=== PATIENT | male | born 1990 | race Caucasian/White ===

== ENCOUNTER 2017-03-24 19:32 | Emergency (ER) | payer OTHER ==
[2017-03-24 19:37] VITALS: BP 137/77; PULSE 93; RESP 18; TEMP 99.5; O2SAT 95
--- NOTE | 2017-03-24 22:20 | EDPHY ---
H & P Stated Complaint: COUGH FOR FEW DAYS NOW COUGHED UP SOME BLOOD Time Seen by Provider: 03/24/17 21:50 HPI/ROS: Chief Complaint: Cough and blood HPI: 26-year-old type 1 diabetic presenting with 2 days of upper respiratory symptoms and cough productive of a mild yellowish sputum. Tonight he had a coughing fit and coughed up small amount of blood. Has not had any real fevers or chills. No chest pain or shortness of breath. No nausea or vomiting. He is relatively well controlled his diabetes on an insulin pump. Blood sugars have been running somewhat high for the last few days because he has been sick. Has been drinking plenty of fluids. No recent travel. Does not have any risk factors for TB. ROS: 10 point Review of Systems is negative except as noted in the HPI. PMH: Type 1 diabetes Medications: Humalog Allergies: Shellfish drive Social History: No smoking, occasional alcohol, no recreational drug use Family History: non-contributory Physical Exam: Gen: Awake, Alert, No Distress HEENT: Nose: no rhinorrhea Eyes: PERRLA, EOMI Mouth: Moist mucosa Neck: Supple, no JVD Chest: nontender, lungs clear to auscultation Heart: S1, S2 normal, no murmur Abd: Soft, non-tender, no guarding Back: no CVA tenderness, no midline tenderness Ext: no edema, non-tender Skin: no rash Neuro: CN II-XII intact, Sensation grossly intact, Strength 5/5 in bilateral upper and lower extremities - Personal History Current Tetanus/Diphtheria Vaccine: Yes Current Tetanus Diphtheria and Acellular Pertussis (TDAP): Yes - Medical/Surgical History Hx Asthma: No Hx Chronic Respiratory Disease: No Hx Diabetes: Yes Hx Cardiac Disease: No Hx Renal Disease: No Hx Cirrhosis: No Hx Alcoholism: No Hx HIV/AIDS: No Hx Splenectomy or Spleen Trauma: No Other PMH: D.M. - Social History Smoking Status: Current some day smoker Constitutional: Initial Vital Signs Temperature (C) 37.5 C 03/24/17 19:36 Heart Rate 93 03/24/17 19:36 Respiratory Rate 18 03/24/17 19:36 Blood Pressure 137/77 H 03/24/17 19:36 O2 Sat (%) 95 03/24/17 19:36 O2 Delivery Mode Room Air Allergies/Adverse Reactions: shellfish derived Allergy (Severe, Verified 03/24/17 19:37) Home Medications: Medication Instructions Recorded Insulin Lispro [Humalog] 100 unit SQ 03/24/17 Medical Decision Making - Diagnostics Imaging Results: Imaging Impressions Chest X-Ray 03/24/17 21:40 IMPRESSION: Normal chest x-ray. Imaging: I viewed and interpreted images myself ED Course/Re-evaluation: [age] with an episode of hemoptysis. Chest x-ray is negative. He is afebrile with normal vital signs here. He is certainly not ill appearing in any way. Does not have any risk factors for TB. Will discharge with follow-up with his primary care physician as an outpatient, instructions return for worsening cough, shortness of breath, fevers, chills, or any other concerns. Departure - Departure Disposition: Home, Routine, Self-Care Clinical Impression: Acute bronchitis, Hemoptysis Condition: Good Instructions: Acute Bronchitis (ED), Hemoptysis (ED) Additional Instructions: Follow up with primary care physician in 2-3 days for re-evaluation. Return emergency department for coughing up more blood, fevers, chills, chest pain, shortness of breath, or any other concerns. Referrals: NONE *PRIMARY CARE P,. [Primary Care Provider] - As per Instructions Ingris Carlos MD [Medical Doctor] - As per Instructions
== END 2017-03-24 22:34 | disposition home or self-care (01) ==
DX: J20.9 Acute bronchitis, unspecified (principal); E10.9 Type 1 diabetes mellitus without complications; F17.200 Nicotine dependence, unspecified, uncomplicated

== ENCOUNTER 2017-11-14 20:31 | Emergency (ER) | payer OTHER ==
--- NOTE | 2017-11-14 20:52 | CPEKG ---
Heart Rate: 78 RR Interval: 769 P-R Interval: 144 QRSD Interval: 96 QT Interval: 356 QTC Interval: 406 P [place]: 71 QRS [place]: 58 T Wave [place]: 63 EKG Severity - NORMAL ECG - EKG Impression: SINUS RHYTHM Electronically Signed By: Giuseppe Daugherty 14-Nov-2017 22:46:41
[2017-11-14] MEDS ORDERED: NS 1,000 ML IV ONE (21:23)
--- NOTE | 2017-11-14 21:23 | EDPHY ---
H & P Stated Complaint: LIGHTHEADEDNESS X 2 DAYS/CP X 1 DAY Time Seen by Provider: 11/14/17 21:22 HPI/ROS: HPI: This is a 27-year-old male presents with Chief Complaint: LIGHTHEADEDNESS X 2 DAYS/CP X 1 DAY Location: Left anterior chest Quality: Pressure Duration: 1 day Signs and Symptoms: No fever, no chills, no shortness of breath, no lower extremity edema, no cough, no wheezing, no dizziness Timing: Sudden Severity: Moderate Context: Patient presents with complaints of lightheadedness time 2 days that is worsened with position changes accompanied by left anterior nonradiating mild pressure-like pain on the left side of his chest that started today while he is working at a [employer] shop. Patient denies any fever, chills, cough. Patient recently traveled on a plane to [place]. Denies lower extremity edema. History of insulin-dependent diabetes mellitus; reports his blood sugars have been running between 150-190. Denies any indigestion/chest pain/shortness of breath. Chest pain is not worsened with inspiratory effort. Denies recreational drug use. Modifying Factors: None Comment: ROS: see HPI Constitutional: No fever, no chills, no weight loss Eyes: No blurred vision Respiratory: No shortness of breath, no cough Cardiovascular: No chest pain Gastrointestinal: No nausea, no vomiting, no diarrhea Genitourinary: No dysuria Extremities: No myalgias Neurologic: No weakness, no numbness Skin: No rashes Hematologic: No bruising, no bleeding MEDICAL/SURGICAL/SOCIAL HISTORY: Medical history: IDDM, THYROID Surgical history: Denies Social history: Employed. CONSTITUTIONAL: Extremely well-appearing adult white male, awake and alert, no obvious distress HEENT: Atraumatic and normocephalic, PERRL, EOMI. Tympanic membranes clear. Oropharynx clear, no exudate and moist pink mucosa. Airway patent. No lymphadenopathy. No meningismus. Cardiovascular: Normal S1/S2, regular rate, regular rhythm, without murmur rub or gallop. PULMONARY/CHEST: Symmetrical and nontender. Clear to auscultation bilaterally. Good air movement. No accessory muscle usage. ABDOMEN: Soft, nondistended, nontender, no rebound, no guarding, no peritoneal signs, no masses or organomegaly. No CVAT. EXTREMITIES: 2/2 pulses, strength 5/5, no deformities, no clubbing, no cyanosis or edema. NEUROLOGICAL: no focal neuro deficits. GCS 15. SKIN: Warm and dry, no erythema. no rash. Good capillary refill. Source: Patient Exam Limitations: No limitations - Personal History Current Tetanus Diphtheria and Acellular Pertussis (TDAP): Yes Tetanus Vaccine Date: LESS THAN 10 YEARS - Medical/Surgical History Hx Asthma: No Hx Chronic Respiratory Disease: No Hx Diabetes: Yes Hx Cardiac Disease: No Hx Renal Disease: No Hx Cirrhosis: No Hx Alcoholism: No Hx HIV/AIDS: No Hx Splenectomy or Spleen Trauma: No Other PMH: D.M., THYROID - Social History Smoking Status: Former smoker Constitutional: Initial Vital Signs Temperature (C) 36.4 C 11/14/17 20:39 Heart Rate 83 11/14/17 20:39 Respiratory Rate 16 11/14/17 20:39 Blood Pressure 122/86 H 11/14/17 20:39 O2 Sat (%) 94 11/14/17 20:39 O2 Delivery Mode Room Air Allergies/Adverse Reactions: shellfish derived Allergy (Severe, Verified 03/24/17 19:37) Home Medications: Medication Instructions Recorded Insulin Lispro [Humalog] 100 unit SQ 03/24/17 Synthroid 11/14/17 Medical Decision Making - Diagnostics EKG Interpretation: 12 lead EKG: Indication: Chest pain Rhythm: Normal sinus rhythm, rate of 98 beats per minute [place]: Normal Intervals: Normal QRS: Normal ST segments: Nonspecific changes T-waves: Nonspecific changes INTERPRETATION: No acute ischemic changes The 12 lead EKG was interpreted by myself and with attending. Imaging Results: Imaging Impressions Chest X-Ray 11/14/17 21:29 Impression: No acute pulmonary disease. ED Course/Re-evaluation: Labs, urinalysis, IV fluids, IV medications, EKG, chest x-ray ordered Given 1 L normal saline and IV Ativan BGL 169 Vital signs stable upon arrival. No hypoxia/wheezing 2205: labs reviewed- no leukocytosis. Normal D-dimer. no DKA. No pancreatitis. This x-ray my read shows no opacity, no effusion, no pneumothorax, no widened mediastinum. EKG no acute ischemic changes No signs of arrhythmia/pulmonary embolism/pneumonia Reassessed patient who reports that his dizziness has resolved and he no longer feels chest discomfort. Advised to follow up with PCP. This patient was seen under the supervision of my secondary supervising physician. I evaluated care for this patient independently. Patient's presentation, labs/imaging, treatment and plan of care were discussed with secondary supervising physician. Differential Diagnosis: Chest pain including but not limited to myocardial ischemia, pulmonary embolus, chest wall pain, pleural inflammation and pulmonary infectious causes. - Data Points Laboratory Results: Laboratory Results 11/14/17 21:30 11/14/17 21:30 11/14/17 11/14/17 11/14/17 22:48 21:30 21:30 WBC RBC Hgb Hct MCV MCH MCHC RDW Plt Count MPV Neut % (Auto) Lymph % (Auto) [place] % (Auto) Eos % (Auto) Baso % (Auto) Nucleat RBC Rel Count Absolute Neuts (auto) Absolute Lymphs (auto) Absolute Monos (auto) Absolute Eos (auto) Absolute Basos (auto) Absolute Nucleated RBC Immature Gran % Immature Gran # D-Dimer < 0.27 ug/mLFEU ug/mLFEU (0.00-0.50) Sodium 138 mEq/L mEq/L (134-144) Potassium 3.9 mEq/L mEq/L (3.5-5.2) Chloride 99 mEq/L mEq/L (97-110) Carbon Dioxide 26 mEq/l mEq/l (22-31) Anion Gap 13 mEq/L mEq/L (8-16) BUN 18 mg/dL mg/dL (7-23) Creatinine 0.9 mg/dL mg/dL (0.7-1.3) Estimated GFR > 60 Glucose 174 mg/dL H mg/dL (70-100) POC Glucose 149 mg/dL H mg/dL (70-100) Calcium 10.2 mg/dL mg/dL (8.5-10.4) Phosphorus 3.7 mg/dL mg/dL (2.5-4.5) Magnesium 1.9 mg/dL mg/dL (1.6-2.3) Total Bilirubin 1.6 mg/dL H mg/dL (0.1-1.4) Conjugated Bilirubin 0.2 mg/dL mg/dL (0.0-0.5) Unconjugated Bilirubin 1.4 mg/dL H mg/dL (0.0-1.1) AST 21 IU/L IU/L (17-59) ALT 30 IU/L IU/L (21-72) Alkaline Phosphatase 71 IU/L IU/L (38-126) Troponin I < 0.012 ng/mL ng/mL (0.000-0.034) NT-Pro-B Natriuret Pep 22 pg/mL pg/mL (0-125) Total Protein 7.4 g/dL g/dL (6.3-8.2) Albumin 4.5 g/dL g/dL (3.5-5.0) Lipase 139 IU/L IU/L (23-300) Beta-Hydroxybutyrate Pending 11/14/17 11/14/17 21:30 21:28 WBC 6.06 10^3/uL 10^3/uL (3.80-9.50) RBC 5.43 10^6/uL 10^6/uL (4.40-6.38) Hgb 17.5 g/dL g/dL (13.7-17.5) Hct 48.8 % % (40.0-51.0) MCV 89.9 fL fL (81.5-99.8) MCH 32.2 pg pg (27.9-34.1) MCHC 35.9 g/dL g/dL (32.4-36.7) RDW 11.2 % L % (11.5-15.2) Plt Count 235 10^3/uL 10^3/uL (150-400) MPV 10.6 fL fL (8.7-11.7) Neut % (Auto) 47.7 % % (39.3-74.2) Lymph % (Auto) 38.3 % % (15.0-45.0) [place] % (Auto) 9.7 % % (4.5-13.0) Eos % (Auto) 3.3 % % (0.6-7.6) Baso % (Auto) 0.8 % % (0.3-1.7) Nucleat RBC Rel Count 0.0 % % (0.0-0.2) Absolute Neuts (auto) 2.89 10^3/uL 10^3/uL (1.70-6.50) Absolute Lymphs (auto) 2.32 10^3/uL 10^3/uL (1.00-3.00) Absolute Monos (auto) 0.59 10^3/uL 10^3/uL (0.30-0.80) Absolute Eos (auto) 0.20 10^3/uL 10^3/uL (0.03-0.40) Absolute Basos (auto) 0.05 10^3/uL 10^3/uL (0.02-0.10) Absolute Nucleated RBC 0.00 10^3/uL 10^3/uL (0-0.01) Immature Gran % 0.2 % % (0.0-1.1) Immature Gran # 0.01 10^3/uL 10^3/uL (0.00-0.10) D-Dimer Sodium Potassium Chloride Carbon Dioxide Anion Gap BUN Creatinine Estimated GFR Glucose POC Glucose 169 mg/dL H mg/dL (70-100) Calcium Phosphorus Magnesium Total Bilirubin Conjugated Bilirubin Unconjugated Bilirubin AST ALT Alkaline Phosphatase Troponin I NT-Pro-B Natriuret Pep Total Protein Albumin Lipase Beta-Hydroxybutyrate Medications Given: Discontinued Medications Sodium Chloride (Ns) 1,000 mls @ 0 mls/hr IV ONCE ONE; Wide Open PRN Reason: Protocol Stop: 11/14/17 21:24 Last Admin: 11/14/17 21:45 Dose: 1,000 mls Lorazepam (Ativan Injection) 0.5 mg IVP EDNOW ONE Stop: 11/14/17 21:29 Last Admin: 11/14/17 22:24 Dose: 0.5 mg Point of Care Test Results: 11/14/17 11/14/17 21:28 22:48 POC Glucose 169 H 149 H Departure - Departure Disposition: Home, Routine, Self-Care Clinical Impression: Dizziness, Atypical chest pain Condition: Good Instructions: Chest Pain (ED), Dizziness (ED) Additional Instructions: Your chest pain today showed no acute cardiac or pulmonary causes. Your laboratory workup was normal. Please rest for the next few days and drink plenty of fluids to prevent hydration. Continue to follow a diabetic diet and monitor your blood sugars. Establish care with a local provider. If your chest pain continues to persist, follow up with your primary care provider or Cardiology for further evaluation. Referrals: [facility],. [Clinic] - As per Instructions Erma Patterson MD [[facility] [place]] - As per Instructions Stand Alone Forms: Work Excuse
[2017-11-14] MEDS ORDERED: LORazepam 2 MG/ML INJ IVP ONE (21:28)
[2017-11-14 21:44] LABS: % IMMATURE GRANULYOCYTES 0.2 % (0.0-1.1); ABSOLUTE IMMATURE GRANULOCYTES 0.01 10^3/uL (0.00-0.10); ADD DIFF? NO; ADD MORPH? NO; ADD SCAN? NO; ATYPICAL LYMPHOCYTE FLAG 10 (0-99); FRAGMENT RBC FLAG 0 (0-99); HEMATOCRIT 48.8 % (40.0-51.0); HEMOGLOBIN 17.5 g/dL (13.7-17.5); LEFT SHIFT FLG 0 (0-99); LIPEMIA HEMOLYSIS FLAG 90 (0-99); MEAN CELL HEMOGLOBIN 32.2 pg (27.9-34.1); MEAN CELL HEMOGLOBIN CONCENTR. 35.9 g/dL (32.4-36.7); MEAN CELL VOLUME 89.9 fL (81.5-99.8); MEAN PLATELET VOLUME 10.6 fL (8.7-11.7); PLATELET CLUMPS FLAG 0 (0-99); PLATELET COUNT 235 10^3/uL (150-400); RED BLOOD CELL COUNT 5.43 10^6/uL (4.40-6.38); RED CELL DISTRIBUTION WIDTH 11.2 % (11.5-15.2)
[2017-11-14 21:59] LABS: ALANINE AMINOTRANSFERASE 30 IU/L (21-72); ALBUMIN 4.5 g/dL (3.5-5.0); ALKALINE PHOSPHATASE 71 IU/L (38-126); ANION GAP 13 mEq/L (8-16); ASPARTATE AMINOTRANSFERASE 21 IU/L (17-59); BILIRUBIN,TOTAL 1.6 mg/dL (0.1-1.4); BILIRUBIN-CONJUGATED 0.2 mg/dL (0.0-0.5); BILIRUBIN-UNCONJUGATED 1.4 mg/dL (0.0-1.1); CALCIUM 10.2 mg/dL (8.5-10.4); CARBON DIOXIDE 26 mEq/l (22-31); CHLORIDE 99 mEq/L (97-110); CREATININE 0.9 mg/dL (0.7-1.3); GLOMERULAR FILTRATION RATE > 60; GLUCOSE 174 mg/dL (70-100); MAGNESIUM 1.9 mg/dL (1.6-2.3); POTASSIUM 3.9 mEq/L (3.5-5.2); SODIUM 138 mEq/L (134-144); TOTAL PROTEIN 7.4 g/dL (6.3-8.2)
[2017-11-14 22:10] LABS: TROPONIN I < 0.012 ng/mL (0.000-0.034)
[2017-11-14 23:54] VITALS: BP 110/66; PULSE 74; RESP 16; TEMP 97.7; O2SAT 94
[2017-11-14 23:55] LABS: B-HYDROXYBUTYRATE 0.24 mmol/L (0.02-0.27)
== END 2017-11-14 23:53 | disposition home or self-care (01) ==
DX: R07.89 Other chest pain (principal); R42 Dizziness and giddiness; E11.9 Type 2 diabetes mellitus without complications; E86.9 Volume depletion, unspecified; Z79.4 Long term (current) use of insulin; Z87.891 Personal history of nicotine dependence
CPT/HCPCS: 96374; J2060